=== PATIENT | female | born 1930 | race Caucasian/White ===

== ENCOUNTER 2016-12-21 10:18 | Emergency (ER) | payer MEDICARE, BC ==
[2016-12-21 10:31] LABS: APPEARANCE,URINE Clear; BILIRUBIN,URINE NEGATIVE (NEGATIVE); COLOR,URINE Yellow; GLUCOSE, URINE (UA) NEGATIVE (NEGATIVE); KETONES,URINE NEGATIVE (NEGATIVE); LEUKOCYTE ESTERASE ,URINE NEGATIVE (NEGATIVE); NITRATE,URINE NEGATIVE (NEGATIVE); OCCULT BLOOD,URINE TRACE INTACT (NEG-TRACE)
[2016-12-21 10:36] LABS: BASOPHILS % (AUTO) 1 % (0-3); EOSINOPHILS % (AUTO) 2 % (0-9); HEMATOCRIT 40 % (35-47); MEAN CORPUSCULAR HGB CONC 32.9 gm/dl (32.0-36.0); MEAN CORPUSCULAR VOLUME 85 fL (81-99); MONOCYTES % (AUTO) 11.7 % (0-12); NEUTROPHILS % (AUTO) 67.4 % (37-80)
[2016-12-21 10:42] LABS: CALCIUM 8.7 mg/dl (8.5-10.1); POTASSIUM 3.9 mMol/L (3.5-5.1)
[2016-12-21 10:54] LABS: RBC,URINE 0-1 (0-3AV/HPF); WBC,URINE NEGATIVE (0-5AV/HPF)
[2016-12-21 11:33] VITALS: TEMP 97.7
[2016-12-21 13:48] VITALS: BP 119/63; PULSE 59; RESP 23; O2SAT 98
== END 2016-12-21 13:35 | disposition short-term general hospital (02) | DRG 310 ==
LOC: ED 10:18
DX: R00.1 Bradycardia, unspecified (principal); Z79.01 Long term (current) use of anticoagulants
CPT/HCPCS: 36415; 80048; 81001; 84484; 85025; 85610; 93005; 99284; 99285

== ENCOUNTER 2017-10-16 13:00 | Observation (INO) | payer MEDICARE, BC ==
[2017-10-16 13:33] LABS: CALCIUM 8.2 mg/dl (8.5-10.1); POTASSIUM 4.3 mMol/L (3.5-5.1)
[2017-10-16 13:40] LABS: HEMATOCRIT 39 % (35-47)
[2017-10-16 13:51] LABS: APPEARANCE,URINE Clear; BILIRUBIN,URINE NEGATIVE (NEGATIVE); COLOR,URINE Yellow; GLUCOSE, URINE (UA) TRACE (NEGATIVE); KETONES,URINE NEGATIVE (NEGATIVE); LEUKOCYTE ESTERASE ,URINE NEGATIVE (NEGATIVE); NITRATE,URINE NEGATIVE (NEGATIVE); OCCULT BLOOD,URINE NEGATIVE (NEG-TRACE); PH,URINE 5.5; UROBILINOGEN,URINE 0.2 (0.2-1.0 EU)
[2017-10-16 14:01] LABS: RBC,URINE NEG (0-3AV/HPF); WBC,URINE 0-1 (0-5AV/HPF)
[2017-10-16] MEDS: WARFARIN SODIUM 1 MG TAB PO SCH (19:08)
[2017-10-16] MEDS: ACETAMINOPHEN 500 MG 500 MG TAB PO SCH (20:31)
[2017-10-16] MEDS: TRAMADOL HYDROCHLORIDE 50 MG TAB PO PRN (21:03)
[2017-10-17] MEDS: TRAMADOL HYDROCHLORIDE 50 MG TAB PO PRN ×3 (03:48→20:01)
[2017-10-17] MEDS: LEVOTHYROXINE SODIUM 50 MCG TAB PO SCH (06:01)
[2017-10-17] MEDS: DONEPEZIL 5 MG 5 MG TAB PO SCH (08:32)
[2017-10-17] MEDS: ACETAMINOPHEN 500 MG 500 MG TAB PO SCH ×4 (08:33→20:05)
[2017-10-17] MEDS: FUROSEMIDE 20 MG TAB PO SCH (08:33)
[2017-10-17] MEDS: METOPROLOL SUCCINATE 50 MG TER PO SCH (08:34)
[2017-10-17] MEDS: MAGNESIUM HYDROXIDE 30 ML SUS PO PRN (15:30)
[2017-10-17] MEDS: SENNOSIDES A AND B 8.6 MG TAB PO PRN (17:31)
[2017-10-17] MEDS: WARFARIN SODIUM 1 MG TAB PO SCH (17:31)
[2017-10-18 01:12] VITALS: O2SAT 93
[2017-10-18] MEDS: LEVOTHYROXINE SODIUM 50 MCG TAB PO SCH (06:18)
[2017-10-18 07:28] LABS: ALBUMIN 2.7 gm/dl (3.4-5.0); CALCIUM 7.7 mg/dl (8.5-10.1); POTASSIUM 4.2 mMol/L (3.5-5.1)
[2017-10-18 07:49] VITALS: BP 131/84; PULSE 91; RESP 18; TEMP 97.5
[2017-10-18] MEDS: ACETAMINOPHEN 500 MG 500 MG TAB PO SCH (08:41)
[2017-10-18] MEDS: FUROSEMIDE 20 MG TAB PO SCH (08:42)
[2017-10-18] MEDS: DONEPEZIL 5 MG 5 MG TAB PO SCH (08:42)
[2017-10-18] MEDS: METOPROLOL SUCCINATE 50 MG TER PO SCH (08:43)
[2017-10-18] MEDS: TRAMADOL HYDROCHLORIDE 50 MG TAB PO PRN (08:47)
[2017-10-18] MEDS: SENNOSIDES A AND B 8.6 MG TAB PO PRN (08:47)
[2017-10-18] MEDS: MAGNESIUM HYDROXIDE 30 ML SUS PO PRN (08:48)
[2017-10-18] MEDS ORDERED: WARFARIN SODIUM 3 MG TAB PO SCH (18:00)
[2017-10-19 05:40] LABS: MEAN CORPUSCULAR VOLUME 86 fL (81-99)
[2017-10-19 05:41] LABS: BASOPHILS % (AUTO) 2 % (0-3); EOSINOPHILS % (AUTO) 1 % (0-9); MEAN CORPUSCULAR HGB CONC 32.2 gm/dl (32.0-36.0); MONOCYTES % (AUTO) 13.5 % (0-12); NEUTROPHILS % (AUTO) 74.5 % (37-80)
== END 2017-10-18 10:10 | DRG 641 ==
LOC: ED 13:00 → UNDOADMOB 17:25 → ACUTE CARE 17:25
PROVIDERS: ADMIT Emergency Medicine; ATTEND Emergency Medicine
DX: R62.7 Adult failure to thrive (principal); S22.060A Wedge compression fracture of T7-T8 vertebra, initial encounter for closed fracture; S32.030A Wedge compression fracture of third lumbar vertebra, initial encounter for closed fracture; G30.1 Alzheimer's disease with late onset; F02.80 Dementia in other diseases classified elsewhere, unspecified severity, without behavioral disturbance, psychotic disturbance, mood disturbance, and anxiety; S22.080A Wedge compression fracture of T11-T12 vertebra, initial encounter for closed fracture; R41.82 Altered mental status, unspecified; R40.2352 Coma scale, best motor response, localizes pain, at arrival to emergency department; R40.2142 Coma scale, eyes open, spontaneous, at arrival to emergency department; R40.2242 Coma scale, best verbal response, confused conversation, at arrival to emergency department; R53.83 Other fatigue; W06.XXXA Fall from bed, initial encounter; E03.9 Hypothyroidism, unspecified; Z95.0 Presence of cardiac pacemaker; Z79.01 Long term (current) use of anticoagulants
CPT/HCPCS: 36415; 70470; 71045; 72070; 72120; 72128; 72131; 73521; 80048; 80053; 81001; 85025; 85610; 99283; 99284; Q9967; A9270-GY